=== PATIENT | male | born 1980 | race Asian ===

== ENCOUNTER 2018-06-16 05:46 | Day surgery (SDC) | payer BC ==
[~2018-06-16] VITALS: Ht 160 cm; Wt 57.0 kg
[~2018-06-16 05:46] MED LIST: OMEPRAZOLE
[2018-06-16 06:37] VITALS: Ht 160 cm; Wt 57.0 kg
[2018-06-16 07:08] VITALS: BP 112/68; PULSE 70; RESP 16
[2018-06-16] MEDS ORDERED: MIDAZOLAM 1 MG/ML 2 ML INJ ONE (08:17)
[2018-06-16] MEDS ORDERED: FENTAnyl 50 MCG/ML VIAL ONE ×2 (08:17)
[2018-06-16 08:22] VITALS: BP 108/68; PULSE 75; RESP 16
--- NOTE | 2018-06-16 10:26 | CONS ---
DATE OF ADMISSION: 06/16/2018 DATE OF CONSULTATION: 05/22/2018 PATIENT NAME: ZAKI HODGES Dear Dr. Molina: I thank you very much for this kind referral. HISTORY OF PRESENT ILLNESS: Mr. Km Hodges is a 37-year-old male patient who has been referred to [facility] for further evaluation of upper abdominal pain and chronic heartburn not completely responding to t herapy with omeprazole. No past history of peptic ulcer disease. Appetite is good. No weight loss. The patient also has an uncomfortable feeling in the throat. Not on nonsteroidal anti-inflammatory agents. No history of gallstones or liver disease. No change in the bowel habit or rectal bleeding . Not a hypertensive or diabetic. No heart disease, lung problem or kidney disease. SOCIAL HISTORY: Nonsmoker. No alcohol abuse. FAMILY HISTORY: No family history of gastrointestinal tract neoplasm. ALLERGIES: NO DRUG ALLERGIES. MEDICATIONS: Omeprazole. PHYSICAL EXAMINATION: GENERAL: He is 5 feet 3 inches tall and weighs 125 pounds. HEART: Normal heart sounds. LUNGS: Clear. ABDOMEN: Soft, no masses. Normal bowel sounds. NEUROLOGIC: Normal neurological exam. IMPRESSION: 1. Upper abdominal pain, not completely responding to therapy with omeprazole. 2. Chronic heartburn with discomfort in the throat. PLAN: 1. Abdominal ultrasound and endoscopy for further evaluation. The procedure and possible complications are well explained to the patient. He understands and conse nts to the procedure. I thank you once again. With warmest personal regards, Dictated By: MARY BETH GUTIERREZ MD GD/NTS Conf#: [id number] DID#: [id number] CC: MARY BETH GUTIERREZ MD;*EndCC*
[2018-06-16] MEDS ORDERED: PHENYLephrine (100 MCG/ML) 10ML SYG ONE (16:26)
== END 2018-06-16 13:13 | disposition home or self-care (01) ==
LOC: GIL 05:46
PROVIDERS: ATTEND Internal Medicine Gastroenterology
DX: K21.9 Gastro-esophageal reflux disease without esophagitis (principal); K29.60 Other gastritis without bleeding
CPT/HCPCS: 43239; 88305; J2250; J2370; J3010; Z7610